=== PATIENT | female | born 1960 | race Two or more races ===

== ENCOUNTER 2024-10-07 12:54 | Outpatient (CLI) | payer OTHER | END 2024-10-07 12:57 | disposition home or self-care (01) | LOC: SONOGRAMA 12:54 | PROVIDERS: ATTEND Pathology Anatomic Pathology & Clinical Pathology | DX: D34 Benign neoplasm of thyroid gland (principal); E06.3 Autoimmune thyroiditis; E05.11 Thyrotoxicosis with toxic single thyroid nodule with thyrotoxic crisis or storm ==